=== PATIENT | female | born 2000 | race Caucasian/White ===

== ENCOUNTER 2018-01-23 13:35 | Emergency (ER) | payer SELFPAY ==
[2018-01-23] MEDS: ALBUTEROL SULFATE 2.5 MG/3 ML NEBU. NEB ×2 (14:35→15:11)
[2018-01-23] MEDS: predniSONE 10 MG TABLET PO (15:49)
== END 2018-01-23 16:16 | disposition home or self-care (01) ==
LOC: ER 16:16
DX: O99.52 Diseases of the respiratory system complicating childbirth (principal); Z37.9 Outcome of delivery, unspecified; J06.9 Acute upper respiratory infection, unspecified; Z3A.00 Weeks of gestation of pregnancy not specified; Z79.899 Other long term (current) drug therapy
CPT/HCPCS: 94640; 99284-25; J7512; J7613